=== PATIENT | male | born 1990 | race Caucasian/White ===

== ENCOUNTER 2021-03-07 14:38 | Emergency (ER) | payer OTHER, SELFPAY ==
[2021-03-07 14:44] VITALS: BP 136/97; PULSE 93; RESP 18; TEMP 36.8; O2SAT 100
[2021-03-07 16:16] LABS: Basophils Percent Auto 0.4 % (0.2-1.2); Eosinophils Absolute Auto 0.1 K/mm3 (0-0.3); Eosinophils Percent Auto 0.8 % (0-4.4); Hematocrit 42.3 % (42.0-52.0); Hemoglobin 14.4 g/dL (14.0-18.0); Immature Granulocyte Absolute 0.03 K/mm3 (0.00-0.031); Immature Granulocyte Percent A 0.3 % (0-0.5); Lymphocytes Absolute Auto 1.11 K/mm3 (0.9-3.2); Lymphocytes Percent Auto 10.9 % (18.3-44.2); Mean Corpuscular Hemoglobin 30.3 pg (26-34); Mean Corpuscular Volume 89.1 fl (80-100); Mean Platelet Volume 10.2 fl (7.4-10.4); Monocytes Absolute Auto 0.7 K/mm3 (0.1-0.6); Monocytes Percent Auto 7.1 % (2.6-8.5); Neutrophils Absolute Auto 8.2 K/mm3 (1.3-6.7); Neutrophils Percent Auto 80.5 % (45.5-73.1); Platelet Count Result 341 k/mm3 (150-375); Red Blood Count 4.75 M/mm3 (4.6-6.20); Red Cell Distribution Width 12.3 % (11.5-14.5); White Blood Count 10.2 K/mm3 (4.5-10.0)
[2021-03-07 16:30] VITALS: BP 141/88; PULSE 89; RESP 20; TEMP 36.8; O2SAT 99
[2021-03-07 16:33] LABS: Ethanol < 10 mg/dL (<10)
[2021-03-07 16:37] LABS: Alanine Aminotransferase 14 U/L (4-50); Albumin Level 4.8 g/dL (3.5-5.1); Alkaline Phosphatase 61 U/L (38-126); Anion Gap 5 mmol/L (8-16); Aspartate Amino Transferase 25 U/L (17-59); Bilirubin,Total 0.3 mg/dL (0.2-1.3); Blood Urea Nitrogen 11 mg/dL (9-20); Calcium 9.8 mg/dL (8.4-10.2); Carbon Dioxide 31 mmol/L (22-30); Chloride 102 mmol/L (98-107); Estimated CRCL calculation 88 ml/min; Estimated Glomerular Filt Rate > 60; Glucose 99 mg/dL (75-110); Potassium 4.8 mmol/L (3.4-5.0); Sodium 138 mmol/L (137-145)
--- NOTE | 2021-03-07 16:55 | ED.GENADULT ---
HPI - General Adult General Chief complaint: Psychiatric Symptoms <CHRIS Flores Last Filed: 03/07/21 21:05> Stated complaint: stressful day <CHRIS Flores Last Filed: 03/07/21 21:05> Time Seen by Provider: 03/07/21 15:08 <CHRIS Flores Last Filed: 03/07/21 21:05> Source: patient and family <CHRIS Flores Last Filed: 03/07/21 21:05> Mode of arrival: ambulatory <CHRIS Flores Last Filed: 03/07/21 21:05> Limitations: no limitations <CHRIS Flores Last Filed: 03/07/21 21:05> History of Present Illness HPI narrative: Patient is a 30-year-old male who presents with his partner per EMS after his sister called police given that he had made comments of potentially wanting to harm himself after being in an argument with his mother who he lives with and frequently has confrontations with due to the living arrangements he also has his girlfriend living in the household who is currently 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 Patient denies SI or HI <CHRIS Flores Last Filed: 03/07/21 21:05> Related Data Home medications: Home Medications Medication Instructions Recorded Confirmed No Home Medications 03/07/21 03/07/21 <CHRIS Flores Last Filed: 03/07/21 21:05> Allergies/adverse reactions: Allergies Allergy/AdvReac Type Severity Reaction Status Date / Time escitalopram AdvReac Other Verified 03/07/21 18:49 <CHRIS Flores Last Filed: 03/07/21 21:05> Review of Systems Review of Systems: All systems reviewed & are unremarkable except as noted in HPI and below <CHRIS Flores Last Filed: 03/07/21 21:05> [facility] Social History Social History: Social History (Updated 03/07/21 @ 16:58 by Cesar Sargent PA-C) Substance use type: marijuana Gender identity (if verbalized by the patient): Male <Cesar Sargent PA-C - Last Filed: 03/07/21 21:05> Exam Narrative: Exam Narrative: GENERAL: Well-appearing, well-nourished, and in no acute distress. HEAD: Normocephalic, atraumatic. EYES: PERRLA and EOMI. ENT: Nares clear, no rhinorrhea or epistaxis. Mucous membranes moist. CHEST: Clear to auscultation. No respiratory distress. No wheezes rales or rhonchi HEART: Regular rate and rhythm. No murmur heard. Normal peripheral pulses. ABDOMEN: Soft, nontender, nondistended EXTREMITIES: Normal range of motion. No edema. SKIN: Warm, dry, no rash. NEURO: No focal deficits. Alert and oriented x3. Cranial nerves II through XII grossly intact PSYCH: Normal mood and affect. <Cesar Sargent PA-C - Last Filed: 03/07/21 21:05> Course [employer]/PA Physician Supervision Patient was evaluated by crisis and I agree with the plan that the patient can be discharged patient has a safe place to go will not be staying with his mother which seem to be the stressor patient felt appropriate for outpatient evaluation has been given psychological resources will return if necessary denying any SI or HI felt appropriate for outpatient reevaluation <Cesar Sargent PA-C - Last Filed: 03/07/21 21:05> Reevaluation(s) Reevaluation #1: Patient in the room at this time continues to be upset about being kept here has been reassured and waiting for crisis given water Tylenol and blanket patient is cooperating. <Cesar Sargent PA-C - Last Filed: 03/07/21 21:05> Date: 03/07/21 <Cesar Sargent PA-C - Last Filed: 03/07/21 21:05> Time: 18:33 <Cesar Sargent PA-C - Last Filed: 03/07/21 21:05> Reevaluation #2: Patient in the room at this time with crisis evaluated no distress cooperative <Cesar Carballo
[2021-03-07 18:42] LABS: Add Urine Microscopic? YES; Appearance Urine Cloudy (Clear); Bacteria Urine Trace /hpf; Bilirubin Urine Negative (Negative); Blood Urine Negative (Negative); Color Urine Yellow (Yellow); Glucose Urine UA Negative (Negative); Ketones Urine Negative (Negative); Leukocyte Esterase Ur Negative LEU/UL (Negative); Nitrate Urine Negative (Negative); Protein Urine 1+ mg/dL (Negative); RBC Urine 0-2 /hpf (0-2); Urobilinogen Urine Negative mg/dL (<2.0); WBC Urine 0-3 /hpf
[2021-03-07] MEDS: ACETAMINOPHEN 325 MG TABLET 650 MG PO (18:46)
[2021-03-07 18:50] VITALS: BP 131/99; PULSE 88; RESP 19; TEMP 36.6; O2SAT 97
[2021-03-07 19:38] LABS: Amphetamine Screen Urine Negative (Negative); Barbiturate Screen Urine Negative (Negative); Benzodiazepines Screen Urine Negative (Negative); Cannabinoid Screen Urine Positive (Negative); Cocaine Screen Urine Negative (Negative); Methadone Screen Urine Negative (Negative); Opiate Screen Urine Negative (Negative); Phencyclidine Screen Urine Negative (Negative)
[2021-03-07 21:25] VITALS: BP 110/65; PULSE 60; RESP 16; TEMP 36.6; O2SAT 97
== END 2021-03-07 21:26 | disposition home or self-care (01) ==
PROVIDERS: Emergency Medicine Emergency Medical Services; Emergency Provider General Practice
DX: F32.9 Major depressive disorder, single episode, unspecified (principal)
CPT/HCPCS: 36415; 80053; 80307; 81001; 84443; 85025; 99284; A9270

== ENCOUNTER 2021-03-14 18:25 | Emergency (ER) | payer OTHER, SELFPAY ==
--- NOTE | ~2021-03-14 | XR_ITS ---
XR wrist RT min 3V DATE: 03/14/2021 18:53 INDICATION: Dog bite, open wound on lateral side of right wrist TECHNIQUE: 4 views COMPARISON: None FINDINGS: No fracture or dislocation, periosteal reaction or bone destruction. No radiopaque foreign body. IMPRESSION: No significant abnormality Reviewed, dictated and finalized at location A. IMPRESSION: No significant abnormality
[2021-03-14 18:32] VITALS: BP 121/85; PULSE 83; RESP 20; TEMP 36.6; O2SAT 100
[2021-03-14 20:24] VITALS: BP 102/67; PULSE 79; RESP 20; TEMP 37; O2SAT 99
--- NOTE | 2021-03-14 21:21 | ED.GENADULT ---
HPI - General Adult General Chief complaint: Wound/Laceration Stated complaint: dog bite Time Seen by Provider: 03/14/21 21:11 Source: patient and old records reviewed Mode of arrival: ambulatory Limitations: no limitations History of Present Illness HPI narrative: Patient is a 30-year-old male who presents with dog bite to the right wrist 2 puncture wounds one on each side of the wrist patient notes aching pain worse with activity and movement patient notes he was at his friend's house when he was bed patient denies any fever chills nausea vomiting has not taken anything for his symptoms is unsure as to his tetanus status Related Data Allergies Allergy/AdvReac Type Severity Reaction Status Date / Time escitalopram AdvReac Other Verified 03/07/21 18:49 Review of Systems Review of Systems: Narrative: CONSTITUTIONAL: Denies fever, chills, or sweats. SKIN: Positive for puncture wounds of the wrist MUSCULOSKELETAL: Positive for arthralgia and puncture wounds NEUROLOGIC: Denies numbness, or weakness.. PMFSH Social History Social History Substance use type: marijuana Gender identity (if verbalized by the patient): Male Exam Narrative: Exam Narrative: GENERAL: Well-appearing, well-nourished, and in no acute distress. HEAD: Normocephalic, atraumatic. EYES: PERRLA and EOMI. ENT: Nares clear, no rhinorrhea or epistaxis. Mucous membranes moist. EXTREMITIES: Normal range of motion. No edema. 1 puncture wound on the ulnar aspect 1 puncture wound on the radial aspect each 1 is less than 1/2 cm in diameter there is no swelling or other abnormalities SKIN: Warm, dry, no rash. NEURO: No focal deficits. Alert and oriented x3. Neurovascularly intact. Capillary refill less than 2 seconds PSYCH: Normal mood and affect. Course Course Emergency Course: Patient in the room at this time no distress negative x-rays will be sent home on prophylactic antibiotic wounds were dressed and clean felt appropriate for outpatient reevaluation Vital Signs Vital signs: Vital Signs Temperature 97.9 F 03/14/21 18:32 Pulse Rate 83 03/14/21 18:32 Respiratory Rate 20 03/14/21 18:32 Blood Pressure 121/85 03/14/21 18:32 Pulse Oximetry 100 03/14/21 18:32 Temperature 98.6 F 03/14/21 20:24 Pulse Rate 79 03/14/21 20:24 Respiratory Rate 20 03/14/21 20:24 Blood Pressure 102/67 03/14/21 20:24 Pulse Oximetry 99 03/14/21 20:24 Medical Decision Making MDM Narrative Medical decision making narrative: Patients injury or pain is consistent with musculoskeletal etiology. No signs of neurological or vascular compromise on exam. Compartments and tisues are soft without signs of compartment syndrome. Pain is felt appropriate for further evaluation on an outpatient basis. Vital Signs Vital Signs: Vital Signs Temperature 97.9 F 03/14/21 18:32 Pulse Rate 83 03/14/21 18:32 Respiratory Rate 20 03/14/21 18:32 Blood Pressure 121/85 03/14/21 18:32 Pulse Oximetry 100 03/14/21 18:32 Temperature 98.6 F 03/14/21 20:24 Pulse Rate 79 03/14/21 20:24 Respiratory Rate 20 03/14/21 20:24 Blood Pressure 102/67 03/14/21 20:24 Pulse Oximetry 99 03/14/21 20:24 Imaging Data Radiologist's impression: ITS Impressions Wrist X-Ray 03/14/21 19:03 IMPRESSION: No significant abnormality Discharge Plan Discharge Clinical Impression: Puncture wound of wrist, Dog bite Patient Disposition: Home, Self-Care Condition: Stable Instructions: Antibiotic Form, Animal Bite (ED) Additional Instructions: Follow up with primary care in the next 5 to 7 days for reevaluation take antibiotics as directed. return if symptoms worsen or concerns, any increase in redness swelling pain or fever over 100.5 Clean wound with mild soapy water. Apply antibiotic ointment and clean dressing at least three times daily Follow patient education sheets Only
[2021-03-14 21:42] VITALS: BP 142/87; PULSE 74; RESP 20; TEMP 36.7; O2SAT 100
[2021-03-14] MEDS: AMOXICILLIN/CLAVULANATE K 875-125 MG TAB 1 TABLET PO (21:48)
[2021-03-14] MEDS: TETANUS,DIPHTHERIA,AC PERTUSSIS ADULT (0.5 ML) BOOSTRIX IM (21:48)
[2021-03-14] MEDS: IBUPROFEN 600 MG TABLET PO (21:48)
== END 2021-03-14 21:57 | disposition home or self-care (01) ==
PROVIDERS: Emergency Provider Emergency Medicine
DX: S61.551A Open bite of right wrist, initial encounter (principal); Z23 Encounter for immunization; W54.0XXA Bitten by dog, initial encounter
CPT/HCPCS: 73110; 90471; 90715; 99283; A9270

== ENCOUNTER 2024-05-18 13:15 | Emergency (ER) | payer MEDICAID, SELFPAY ==
[2024-05-18 13:29] VITALS: BP 101/59; PULSE 67; RESP 16; TEMP 36.7; O2SAT 100
--- NOTE | 2024-05-18 13:43 | ED.NAVMDI ---
HPI - Nausea/Vomiting/Diarrhea General Chief complaint: Nausea/Vomiting/Diarrhea Stated complaint: stomach pain,nausea right side/left side face pain Time Seen by Provider: 05/18/24 13:32 Source: patient, RN notes reviewed and old records reviewed Mode of arrival: ambulatory Limitations: no limitations History of Present Illness HPI Narrative: Patient presents to [facility] today with multiple complaints. Patient reports that he works in [employer], has been having difficulty with the heat the past few days. 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 States that over the past few days he has noticed that he has had some purulence drainage from where the tooth used to be. States that in the past he has been advised by dentist that he needs bone graft. He cannot afford to do this at this time. He reports 1 episode of vomiting today. He reports painful bowel movements with associated rectal bleeding for the past several years. He reports that he has been diagnosed with hemorrhoids. He does adhere to a high-fiber diet. He has not been following up with GI. He has not had a primary care provider for several years. He reports that he has just found a new PCP, appointment next month. Related Data Allergies Allergy/AdvReac Type Severity Reaction Status Date / Time escitalopram AdvReac Other Verified 05/18/24 13:38 Review of Systems Review of Systems: All systems reviewed & are unremarkable except as noted in HPI and below Constitutional: Constitutional: Reports no additional constitutional complaints ENT: Reports system reviewed and no additional complaints, except as documented Cardiovascular: Cardiovascular: Reports no additional cardiovascular complaints Respiratory: Respiratory: Reports no additional respiratory complaints Gastrointestinal: Gastrointestinal: Reports no additional gastrointestinal complaints [facility] Social History Social History Substance use type: marijuana Gender identity (if verbalized by the patient): Male Comments At the time of my signature, I reviewed and agree with the nursing past medical, surgical, social, and family history. There is no relevant family history pertinent to the patient complaint. Exam Const: General: cooperative, no acute distress, alert and awake Orientation/consciousness: oriented to person, oriented to place and oriented to time HENMT: Head: normal to inspection Teeth and gingiva: abnormal tooth and associated gingiva (left central incisor. Decayed tooth root and purulent drainage noted) Resp: Effort & Inspection: normal respiratory effort and able to speak in complete sentences Auscultation: clear to auscultation bilaterally, no crackles, no rales, no rhonchi and no wheezes Cardio: Palpation: normal PMI Rate: regular rate Rhythm: regular rhythm Heart sounds: S1 normal heart sound present and S2 normal heart sound present GI: GI Palp: No abdominal tenderness, Yes Soft to palpation, No Tenderness to palpation present (GI) and No Guarding due to palpation present (GI) Auscultation: normal bowel sounds Neuro: General: oriented to person, oriented to place and oriented to time Cranial nerves: Yes CN's II-XII intact bilaterally Psych: Appearance: grossly normal Thought process: Normal thought process present Insight: Good insight present (Psych) Judgement: Good judgement present (Psych) Course Course Level of Care: Express Care Visit Vital Signs Vital signs: Vital Signs Temperature 98.1 F 05/18/24 13:29 Pulse Rate 67 05/18/24 13:29 Respiratory Rate 16 05/18/24 13:29 Blood Pressure 101/59 L 05/18/24 13:29 Pulse Oximetry 100 05/18/24 13:29 Oxygen Delivery Room Air 05/18/24 13:29 Temperature 98.1 F 05/18/24 13:29 Pulse Rate 67 05/18/24 13:29 Respiratory Rate 16 05/18/24 13:29 Blood Pressure 101/59 L 05/18/24
== END 2024-05-18 14:11 | disposition home or self-care (01) ==
PROVIDERS: Emergency Provider Nurse Practitioner Family
DX: K04.7 Periapical abscess without sinus (principal); F12.90 Cannabis use, unspecified, uncomplicated
CPT/HCPCS: 99213; G0463

== ENCOUNTER 2025-07-24 14:24 | Outpatient (CLI) | payer MEDICAID, SELFPAY ==
--- NOTE | ~2025-07-24 | XR_ITS ---
EXAMINATION: XR hand LT 2V DATE: 07/24/2025 14:44 INDICATION: Injury against metal 4 months ago TECHNIQUE: 2 images of the right hand were obtained. COMPARISON: Right wrist x-rays 03/14/2021 FINDINGS: No dislocation. Bone mineralization is within normal limits. No joint space narrowing. There is a 2 x 1 mm radiopaque density adjacent to the base of the middle phalanx of the third digit along its volar surface. Differential includes accessory ossicle, tiny volar plate avulsion fracture of indeterminate age or radiopaque foreign body. IMPRESSION: 1. There is a 2 x 1 mm radiopaque density adjacent to the base of the middle phalanx of the third digit along its volar surface. Differential includes accessory ossicle, tiny volar plate avulsion fracture of indeterminate age or radiopaque foreign body. 2. No other possible fracture or dislocation identified. Reviewed, dictated and finalized at location Q. IMPRESSION: 1. There is a 2 x 1 mm radiopaque density adjacent to the base of the middle ph alanx of the third digit along its volar surface. Differential includes accesso ry ossicle, tiny volar plate avulsion fracture of indeterminate age or radiopaq ue foreign body. 2. No other possible fracture or dislocation identified.
== END 2025-07-24 14:25 | disposition home or self-care (01) ==
PROVIDERS: Visit Provider Physician Assistant Surgical
DX: R93.7 Abnormal findings on diagnostic imaging of other parts of musculoskeletal system (principal); S60.552A Superficial foreign body of left hand, initial encounter; X58.XXXA Exposure to other specified factors, initial encounter
CPT/HCPCS: 73120

== ENCOUNTER → 2025-07-24 14:57 | Outpatient (REF) | payer MEDICAID, SELFPAY ==
--- NOTE | 2025-07-24 14:57 | S_PTH ---
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
== END ==
LOC: ANHLAB 14:57
PROVIDERS: Visit Provider Physician Assistant Surgical
DX: L92.3 Foreign body granuloma of the skin and subcutaneous tissue (principal); S60.552A Superficial foreign body of left hand, initial encounter; X58.XXXA Exposure to other specified factors, initial encounter
CPT/HCPCS: 88300; 88305